=== PATIENT | male | born 1935 | race Caucasian/White ===

== ENCOUNTER 2017-06-03 21:28 | Emergency (ER) | payer MEDICARE, BC | END 2017-06-03 23:08 | disposition home or self-care (01) | LOC: ER 21:33 | DX: M10.9 Gout, unspecified (principal); I10 Essential (primary) hypertension; I25.2 Old myocardial infarction; Z98.890 Other specified postprocedural states; Z88.0 Allergy status to penicillin; Z88.2 Allergy status to sulfonamides | CPT/HCPCS: 99283; A4606; A6402; Z7610 ==

== ENCOUNTER 2021-03-29 10:47 | Outpatient (CLI) | payer MEDICARE, BC | END 2021-03-29 23:59 | disposition home or self-care (01) | LOC: LAB 10:47 | DX: I25.10 Atherosclerotic heart disease of native coronary artery without angina pectoris (principal); I21.09 ST elevation (STEMI) myocardial infarction involving other coronary artery of anterior wall; I25.9 Chronic ischemic heart disease, unspecified; Z95.1 Presence of aortocoronary bypass graft | CPT/HCPCS: 36415; 83880 ==